=== PATIENT | male | born 1965 | race Caucasian/White ===

== ENCOUNTER → 2016-04-25 | Outpatient (REF) | payer BC | LOC: M LAB REF 11:30 | PROVIDERS: ATTEND Physician Assistant Medical | DX: J11.1 Influenza due to unidentified influenza virus with other respiratory manifestations (principal) ==

== ENCOUNTER 2017-12-26 09:02 | Day surgery (SDC) | payer BC ==
[2017-12-26] MEDS: NS 1,000 ML IV (09:25)
[2017-12-26] MEDS ORDERED: PROPOFOL 200 MG/20 ML VIAL As Ordered ×3 (09:28→10:38)
[2017-12-26] MEDS ORDERED: LIDOCAINE 2% INJ 100 MG/5 ML SDV (FOR ANES.) As Ordered (09:29)
== END 2017-12-26 11:30 | disposition home or self-care (01) ==
LOC: M OPP 09:02
DX: Z12.11 Encounter for screening for malignant neoplasm of colon (principal); D12.5 Benign neoplasm of sigmoid colon; K64.0 First degree hemorrhoids; K57.30 Diverticulosis of large intestine without perforation or abscess without bleeding; R00.8 Other abnormalities of heart beat; G47.30 Sleep apnea, unspecified; R06.83 Snoring
CPT/HCPCS: 45385